=== PATIENT | female | born 1990 ===

== ENCOUNTER 2018-06-16 11:15 | Day surgery (SDC) | payer OTHER ==
[2018-06-08 13:38] VITALS: BMI 28.3
[2018-06-16 12:44] LABS: BASO % 0.5 % (0.0-2.0); EOS % 0.3 % (0.0-4.0); HEMOGLOBIN 13.9 g/dL (12.0-16.0); LYMPH # 1.8 K/uL (1.0-4.3); LYMPH % 24.7 % (20.0-40.0); MEAN CORPUSCULAR HEMOGLOBIN 28.3 pg (27.0-31.0); MEAN PLATELET VOLUME 7.8 fl (7.2-11.7); MONO # 0.3 K/uL (0.0-0.8); MONO % 4.3 % (0.0-10.0); NEUT % 70.2 % (50.0-75.0); NRBC % 0.1 % (0.0-0.0); RBC 4.91 Mil/uL (3.80-5.20); RED CELL DISTRIBUTION WIDTH 13.3 % (11.5-14.5); WHITE BLOOD COUNT 7.1 K/uL (4.8-10.8)
[2018-06-16] MEDS ORDERED: Propofol 10 mg/ml Inj (20 ML) ONE ×2 (18:29→19:15)
[2018-06-16] MEDS ORDERED: Midazolam 2 MG/2 ML VIAL ONE (18:30)
[2018-06-16] MEDS ORDERED: Rocuronium 10 mg/ml (5 ml) ONE (18:30)
[2018-06-16] MEDS ORDERED: Succinylcholine 200 mg/10 ml Inj IV ONE (18:30)
[2018-06-16] MEDS ORDERED: Lidocaine 4% (Laryng-O-Jet) Kit MM ONE (18:31)
[2018-06-16] MEDS ORDERED: Bupivacaine HCl 0.5% PF (30 ml) Inj ONE (18:42)
[2018-06-16] MEDS ORDERED: Dexamethasone 4 mg/1 ml ONE (19:17)
--- NOTE | 2018-06-16 20:37 | PCM.OP ---
Operative Report - Operative Report Date of Surgery/Procedure: 06/16/18 Time of Surgery/Procedure: 19:00 Surgeon: Dr. Kranthi Torrez Cafeteria Table Attendant: Dr. Marvin Estrada and Dr. Clarke Anesthesia/Sedation: general/Dr. Orozco Pre-Operative Diagnosis: acute/chronic cholecystitis Post-Operative Diagnosis: same Indication for Surgery: as above Operative Findings: as above Procedure/Operation Description: 1-lapaeroscopic cholecystectomy. Description of the Procedure: the patient was brought to the operating room and after endotracheal general anesthesia was achieved she was prepped and drapped in the usual sterile manner. An infraumbilical incision was made with a 15 blade and the peritoneum was entered with a Knight trocar and the abdomen insulflarted. Three other 5mm ports were placed in the usula position and the gallbldder was retracted cephald and larteral. The cystic structures were dissected and the so called "criticle view" was obtained. These strictures were clipped and transectred. The gallbldder was relieved from the gallbladder plarte with electrocautery. Hemostasis was deemed asdeqaute. Some bile splillage was aspirtated and the clips were felt ot be in adeqaute position. The gallbadder wasremoved through and endobag and the abdomen was deflated. The umbilical incision was closed with 2-0 PDS and rthe skin with 4-0 monocryl. A clean dressong was applied and the patient was awakened, extubated and brought to the PACU in stable condition. Estimated Blood Loss: 15 cc Complications: none Specimen: gallbladder Discharge & Condition: stable
--- NOTE | 2018-06-16 20:39 | CP.SDSHP ---
Same Day Surgery H & P - History Proposed Procedure: Robot-assisted, laparoscopic cholecystectomy Pre-Op Diagnosis: symptomatic cholelithaisis - Previous Medical/Surgical History Pain: 0. No Pain Previous Surgical History: , sebaceous cyst removal - Allergies Allergies: Allergies seasonal Allergy (Uncoded 06/16/18 12:24) COUGH SNEEZING - Physical Exam General Appearance: well, non-toxic Mental Status: Alert & Oriented x3 Neuro: WNL Heart: WNL Lungs: WNL GI: WNL - Impression Impression: 28 y/o F w/ symptomatic cholelithaisis Pt. Evaluated Today:Candidate for Anesthesia & Procedure: Yes - Date & Time Date: 06/16/18 Time: 18:30 Short Stay Discharge - Short Stay Discharge Admitting Diagnosis/Reason for Visit: K81.9 Disposition: HOME/ ROUTINE Referrals: Trever Alvarez MD [Primary Care Provider] - Follow-up: Follow up with Dr. Torrez in office in 1-2weeks take all medication as prescribed pt may take OTC pain medication PRN Pt may shower tomorrow. Do not soak or scrub incisions No pools, tubs, baths, swimming until cleared by Dr. Torrez No heavy lifting (greater than 10lbs) for 4weeks Pt may experience some diarrhea w/ fatty foods which should lessen over then next 1-2months Advance diet as tolerate Call Dr. Torrez &/or return to the ED if fever >101, pain, redness, swelling, drainage from incisions. Instructions: Cholecystectomy, Laparoscopic Surgery, How to Prevent Surgical Site Infections
[2018-06-16] MEDS ORDERED: HYDROmorphone 0.5 mg/0.5 ml ISec IVP PRN (20:41)
[2018-06-16] MEDS ORDERED: Dexamethasone 4 mg/1 ml IVP PRN (20:41)
[2018-06-16] MEDS ORDERED: DiphenhydrAMINE 50 mg/ml Inj IVP PRN (20:41)
[2018-06-16] MEDS ORDERED: Lactated Ringer's 1,000 ML IV SCH (20:45)
--- NOTE | 2018-06-16 20:50 | PCM.SURG1 ---
Surgeon's Initial Post Op Note - Surgeon's Notes Surgeon: Dr. Torrez Lens Grinder: Dr. Estrada, Dr. Liz PGY3 Type of Anesthesia: General Endo Pre-Operative Diagnosis: gallbladder polyp >1cm Operative Findings: see dictation Post-Operative Diagnosis: same Operation Performed: laparscopic cholecystectomy Specimen/Specimens Removed: gallbladder Estimated Blood Loss: EBL {In ML}: 15 Blood Products Given: N/A Drains Used: No Drains Post-Op Condition: Good Date of Surgery/Procedure: 06/16/18 Time of Surgery/Procedure: 19:00
[2018-06-16] MEDS ORDERED: Lactated Ringer's 1,000 ML IV ONE (22:05)
[2018-06-16 22:34] VITALS: RESP 20; TEMP 97.9
[2018-06-17 00:31] VITALS: BP 118/81; PULSE 100; O2SAT 97
== END 2018-06-17 01:45 | disposition home or self-care (01) ==
LOC: H.OPSURG 11:15 → H.MEDSURG1 22:26 → H.OPSURG 06-17 01:45
PROVIDERS: ATTEND Surgery
DX: K81.2 Acute cholecystitis with chronic cholecystitis (principal); K82.4 Cholesterolosis of gallbladder
CPT/HCPCS: 36415; 47562; 85025; 86850; 86900; 88304; J0131; J0330; J0690; J1100; J1170; J1885; J2001; J2250; J2405; J2704; J2765; J3010; J7120